=== PATIENT | female | born 1960 | race Caucasian/White ===

== ENCOUNTER → 2016-10-12 | Outpatient (CLI) | payer BC ==
[~2016-10-12] MED LIST: AZIT250T PO; IBUP-103 PO; PRLSR20 PO; ROBITUSSIN PO; ROSU5TAB PO
[2016-10-12 14:31] LABS: URINE APPEARANCE CLEAR (CLEAR); URINE BILIRUBIN NEG (NEG); URINE COLOR YELLOW; URINE EPITHELIAL CELL AUTO >30 /lpf (0-5); URINE NITRITE NEG (NEG); URINE SPECIFIC GRAVITY 1.003 (1.000-1.030); UROBILINOGEN NEG (NEG)
[2016-10-12 14:33] LABS: MANUAL MICROSCOPIC REQUIRED? NO; REVIEW REQ? YES
== END | disposition home or self-care (01) ==
LOC: C.LABSPEC 13:51
PROVIDERS: ATTEND Obstetrics & Gynecology
DX: N94.9 Unspecified condition associated with female genital organs and menstrual cycle (principal); R30.0 Dysuria

== ENCOUNTER → 2016-12-25 | Outpatient (CLI) | payer BC | END | disposition home or self-care (01) | LOC: C.LABSPEC 14:42 | PROVIDERS: ATTEND Internal Medicine | DX: B34.9 Viral infection, unspecified (principal) ==

== ENCOUNTER 2017-01-03 20:48 | Emergency (ER) | payer BC ==
[~2017-01-03] VITALS: Ht 157.5 cm; Wt 70.4 kg
[~2017-01-03 20:48] MED LIST changes: -AZIT250T PO; -IBUP-103 PO; -ROBITUSSIN PO; -ROSU5TAB PO
[2017-01-03 20:50] VITALS: TEMP 37.7; Ht 157.5 cm; Wt 70.4 kg
[2017-01-03] MEDS ORDERED: SODIUM CHLORIDE 0.9% 1000ML 1,000 ML IV STA (21:02)
[2017-01-03] MEDS ORDERED: ACETAMINOPHEN 500 MG TAB PO STA (21:04)
[2017-01-03 21:23] LABS: BASO % 0.2 %; BASO ABS # 0.01 K/uL (0-0.2); COMPLETE YES; HEMATOCRIT 40.2 % (37-47); IG% 0.2 %; LYMPH % 20.7 %; LYMPH ABS # 1.01 K/uL (1.2-3.4); MEAN CELL VOLUME 95.7 fL (80-100); MEAN CORPUSCULAR HEMOGLOBIN 32.1 pg (25-34); MEAN CORPUSCULAR HGB CONC 33.6 g/dl (32-36); MEAN PLATELET VOLUME 11.5 fL (7.4-10.4); MONO % 11.7 %; NEUT % 66.2 %; PLATELET COUNT 190 K/uL (130-400); WHITE BLOOD COUNT 4.87 K/uL (4.8-10.8)
[2017-01-03] MEDS ORDERED: ROBITUSSIN PO (21:31)
[2017-01-03] MEDS ORDERED: ROSU5TAB PO (21:31)
[2017-01-03] MEDS ORDERED: IBUP-103 PO (21:31)
[2017-01-03 21:39] LABS: BUN/CREATININE RATIO 13.8 (10-20); CREATININE 0.87 mg/dl (0.60-1.20); POTASSIUM 3.8 mmol/L (3.5-5.1)
[2017-01-03 21:56] LABS: CALCIUM 8.5 mg/dl (8.5-10.1)
[2017-01-03 22:13] LABS: URINE APPEARANCE CLEAR (CLEAR); URINE BILIRUBIN NEG (NEG); URINE COLOR YELLOW; URINE NITRITE NEG (NEG); URINE SPECIFIC GRAVITY 1.007 (1.000-1.030); UROBILINOGEN NEG (NEG); ZZUR CULT IF INDIC CLEAN CATCH NO
--- NOTE | 2017-01-03 22:14 | DIAGNOSTIC IMAGING REPORT ---
CHEST 2 VIEWS ROUTINE CLINICAL HISTORY: cough, fever dyspnea COMPARISON STUDY: No previous studies for comparison. FINDINGS: The bones soft tissues and hemidiaphragms are normal. The cardiomediastinal silhouette is normal. The lungs are clear. The pulmonary vasculature is normal. IMPRESSION: Negative chest. Electronically signed by: Lloyd Womack M.D. 01/03/2017 10:12 PM Dictated Date/Time: 01/03/2017 10:11 PM
[2017-01-03 22:18] LABS: MANUAL MICROSCOPIC REQUIRED? NO; REVIEW REQ? NO
[2017-01-03] MEDS ORDERED: AZIT250T PO (23:08)
[2017-01-03] MEDS ORDERED: AZITHROMYCIN 250 MG TAB PO STA (23:09)
--- NOTE | 2017-01-03 23:09 | EMERGENCY ROOM VISIT NOTE ---
History First contact with patient: 20:56 Chief Complaint: COUGH Stated Complaint: PERSISTENT COUGH History of Present Illness The patient is a 56 year old female who presents to the Emergency Room with complaints of persistent cough which started almost 2 weeks ago. The patient was seen by her PCP on the and was given Tamiflu and Robitussin. The patient states that her symptoms are not improving. The patient states she feels achy and feels like she has a fever but she has not taken her temperature. The patient also states that her throat hurts from coughing. She denies any head congestion or ear pain. The patient does admit to some head congestion. The patient denies any urinary symptoms of frequency, urgency, dysuria or hematuria. The patient denies any nausea or vomiting. The patient denies any abdominal pain. Review of Systems 10 system review was performed and was negative unless stated otherwise history of present illness. Social History Smoking Status: Current Every Day Smoker Alcohol Use: occasionally Marital Status: Occupation Status: employed Current/Historical Medications Scheduled Ibuprofen Tab (Advil), 600 MG PO prn ud Omeprazole (Prilosec), 20 MG PO DAILY Rosuvastatin Calcium (Crestor), 5 MG PO Q2D [Robitussin], 10 ML PO QID Allergies Coded Allergies: Sulfa Drugs (Verified Allergy, ., 07/13/12) Physical Exam Vital Signs Date Time Temp Pulse Resp B/P Pulse Ox O2 Delivery O2 Flow Rate FiO2 01/03/17 22:58 88 24 146/88 94 Room Air 01/03/17 21:56 Room Air 01/03/17 21:52 77 01/03/17 21:50 Room Air 01/03/17 21:45 76 20 148/96 94 Room Air 01/03/17 21:43 Room Air 01/03/17 20:50 37.7 89 18 152/99 89 Room Air Physical Exam PHYSICAL EXAM: Vital Signs were reviewed: Temperature 37.7, blood pressure 152/ 99, pulse 89, respiratory rate 18 Reviewed Nurse's notes and agree. Oxygen saturation is 89 % on room air which is low. GENERAL: 56-year-old white female appears in no acute distress. MENTAL STATUS: Alert, oriented, coherent. EARS: Canals clear. TMs good light reflex, no erythema or fluid level noted. NOSE: Nasal mucosa with moderate erythema engorgement. PHARYNX: No erythema, no edema noted. No exudate noted. Airway is adequate. NECK: Supple, non-tender. No lymphadenopathy noted. LUNGS: Patient has decreased breath sounds bilaterally. No audible wheezing or rhonchi noted. CARDIAC: Regular rate and rhythm without murmur. BACK: No CVA tenderness noted. SKIN: No rashes noted. Medical Decision & Procedures ER Provider Diagnostic Interpretation: CHEST 2 VIEWS ROUTINE CLINICAL HISTORY: cough, fever dyspnea COMPARISON STUDY: No previous studies for comparison. FINDINGS: The bones soft tissues and hemidiaphragms are normal. The cardiomediastinal silhouette is normal. The lungs are clear. The pulmonary vasculature is normal. IMPRESSION: Negative chest. Electronically signed by: Lloyd Womack M.D. 01/03/2017 10:12 PM Laboratory Results 01/03/17 21:10 Red Blood Count 4.20, Mean Corpuscular Volume 95.7, Mean Corpuscular Hemoglobin 32.1, Mean Corpuscular Hemoglobin Concent 33.6, Mean Platelet Volume 11.5, Neutrophils (%) (Auto) 66.2, Lymphocytes (%) (Auto) 20.7, Monocytes (%) (Auto) 11.7, Eosinophils (%) (Auto) 1.0, Basophils (%) (Auto) 0.2, Neutrophils # (Auto ) 3.22, Lymphocytes # (Auto) 1.01, Monocytes # (Auto) 0.57, Eosinophils # (Auto ) 0.05, Basophils # (Auto) 0.01 01/03/17 21:10 Test 01/03/17 21:10 01/03/17 21:30 White Blood Count 4.87 K/uL (4.8-10.8) Red Blood Count 4.20 M/uL (4.2-5.4) Hemoglobin 13.5 g/dL (12.0-16.0) Hematocrit 40.2 % (37-47) Mean Corpuscular Volume 95.7 fL (80-100) Mean Corpuscular Hemoglobin 32.1 pg (25-34) Mean Corpuscular Hemoglobin Concent 33.6 g/dl (32-36) Platelet Count 190 K/uL (130-400) Mean Platelet Volume 11.5 fL (7.4-10.4) Neutrophils (%) (Auto) 66.2 % Lymphocytes (%) (Auto) 20.7 % Monocytes (%) (Auto) 11.7 % Eosinophils (%) (Auto) 1.0 % Basophils (%) (Auto) 0.2 % Neutrophils # (Auto) 3.22 K/uL (1.4-6.5) Lymphocytes # (Auto) 1.01 K/uL (1.2-3.4) Monocytes # (Auto) 0.57 K/uL (0.11-0.59) Eosinophils # (Auto) 0.05 K/uL (0-0.5) Basophils # (Auto) 0.01 K/uL (0-0.2) RDW Standard Deviation 45.2 fL (36.4-46.3) RDW Coefficient of Variation 12.9 % (11.5-14.5) Immature Granulocyte % (Auto) 0.2 % Immature Granulocyte # (Auto) 0.01 K/uL (0.00-0.02) Anion Gap 6.0 mmol/L (3-11) Est Creatinine Clear Calc Drug Dose 66.4 ml/min Estimated GFR () 86.3 Estimated GFR (Non- 74.5 BUN/Creatinine Ratio 13.8 (10-20) Calcium Level 8.5 mg/dl (8.5-10.1) Urine Color YELLOW Urine Appearance CLEAR (CLEAR) Urine pH 7.0 (4.5-7.5) Urine Specific [place] 1.007 (1.000-1.030) Urine Protein NEG (NEG) Urine Glucose (UA) NEG (NEG) Urine Ketones NEG (NEG) Urine Occult Blood NEG (NEG) Urine Nitrite NEG (NEG) Urine Bilirubin NEG (NEG) Urine Urobilinogen NEG (NEG) Urine Leukocyte Esterase NEG (NEG) Medications Administered Medications (Trade) Dose Ordered Sig/[place] Route Start Time Stop Time Status Last Admin Dose Admin Sodium Chloride (Nss 1000ml) 1,000 ml @ 999 mls/hr Q1H1M STAT IV 01/03/17 21:02 01/03/17 22:02 DC 01/03/17 21:42 999 MLS/HR Acetaminophen (Tylenol Tab) 1,000 mg NOW STAT PO 01/03/17 21:04 01/03/17 21:05 DC 01/03/17 21:40 1,000 MG ED Course The patient was evaluated. The patient's EMR was reviewed. The patient was negative for influenza A and influenza B on 12/25/2016. The patient was given Tylenol 1 g by mouth for fever and pain. The patient was placed on a monitor and continuous pulse ox. The patient's pulse ox came up to 92% on room air.. IV access was obtained. The patient was given 1 L normal saline wide-open. CBC and differential, renal profile, urinalysis was ordered. Chest x-ray was ordered and interpreted by the radiologist and myself as above without any acute findings. Labs are reviewed and were unremarkable. And was pulse ox was then obtained and her oxygen level was between 92 and 97. The patient was informed of all findings. The patient was given Zithromax 500 mg by mouth while in the emergency room. The patient was discharged home in stable condition. Medical Decision Differential diagnosis include pneumonia, influenza, viral URI, bronchitis Impression Primary Impression: Acute bronchitis Departure Information Dispostion Home / Self-Care Condition GOOD Prescriptions Azithromycin (Zithromax) 250 Mg Tab 250 MG PO DAILY for 4 Days, #4 TAB Prov: Oriana Womack PA-C 01/03/17 Referrals Ebenezer Cohn M.D. (PCP) Forms HOME CARE DOCUMENTATION FORM, IMPORTANT VISIT INFORMATION Patient Instructions Bronchitis Acute, My [facility] Additional Instructions Take Zithromax as prescribed. Tylenol and/or ibuprofen as needed for fever and body aches. Follow up with your PCP in 2 days for recheck. If symptoms worsen in the interim, return to ER. Problem Qualifiers Primary Impression: Acute bronchitis Bronchitis organism: unspecified organism Qualified Codes: J20.9 - Acute bronchitis, unspecified
[2017-01-03 23:24] VITALS: BP 142/68; PULSE 78; O2SAT 96
== END 2017-01-03 23:26 | disposition home or self-care (01) ==
LOC: C.EDB 20:49 → C.EDA 23:26
DX: J20.9 Acute bronchitis, unspecified (principal); F17.210 Nicotine dependence, cigarettes, uncomplicated; Z79.899 Other long term (current) drug therapy

== ENCOUNTER → 2017-05-02 | Outpatient (CLI) | payer BC ==
[~2017-05-02] MED LIST changes: +IBUP-103 PO; +ROBITUSSIN PO; +ROSU5TAB PO
--- NOTE | 2017-05-02 15:19 | MAMMOGRAPHY REPORT ---
BILATERAL DIGITAL SCREENING MAMMOGRAM TOMOSYNTHESIS WITH CAD: 05/02/2017 CLINICAL HISTORY: Routine screening. TECHNIQUE: Breast tomosynthesis in addition to standard 2D mammography was performed. Current study was also evaluated with a Computer Aided Detection (CAD) system. COMPARISON: Comparison is made to exams dated: 11/26/2015 mammogram, 11/24/2014 mammogram, 11/14/2013 m ammogram, 11/06/2012 mammogram, 11/04/2010 mammogram - [facility], and 08/07/2007. BREAST COMPOSITION: The tissue of both breasts is almost entirely fatty. FINDINGS: No suspicious masses, calcifications, or areas of architectural distortion are noted in ei ther breast. There has been no significant interval change compared to prior exams. Small benign-tennille earing mass in the left lateral breast middle depth is stable dating back to at least the 2006 exam. IMPRESSION: ACR BI-RADS CATEGORY 2: BENIGN There is no mammographic evidence of malignancy. A 1 year screening mammogram is recommended. The pa tient will receive written notification of the results. Approximately 10% of breast cancers are not detected with mammography. A negative mammographic report should not delay biopsy if a clinically suggestive mass is present. Meka Montana M.D. /:05/02/2017 08:38:42 Channel Marketing Coordinator: Patrick HUMPHREYS)(M), [facility] letter sent: Normal 1/2 BI-RADS Code: ACR BI-RADS Category 2: Benign
== END | disposition home or self-care (01) ==
LOC: C.MAMM 07:55
PROVIDERS: ATTEND Internal Medicine
DX: Z12.31 Encounter for screening mammogram for malignant neoplasm of breast (principal)